=== PATIENT | male | born 1990 | race Caucasian/White ===

== ENCOUNTER 2017-05-17 19:47 | Emergency (ER) | payer SELFPAY ==
[~2017-05-17] VITALS: Ht 185.4 cm; Wt 118.8 kg
[2017-05-17] MEDS ORDERED: NO HOME MEDICATION XX (20:46)
== END 2017-05-17 21:49 ==
LOC: EDMED 19:47
DX: R10.9 Unspecified abdominal pain (principal)